=== PATIENT | female | born 1985 | race Hispanic/Latino ===

== ENCOUNTER 2018-07-13 21:19 | Emergency (ER) | payer OTHER, SELFPAY ==
[2018-07-13] MEDS ORDERED: ONDANSETRON 4 MG/2 ML VIAL ONE (22:04)
[2018-07-13] MEDS ORDERED: FAMOTIDINE 20 MG/2 ML VIAL IV ONE (22:04)
[2018-07-13] MEDS ORDERED: NA CHLORIDE 0.9% 1,000 ML ONE (22:04)
[2018-07-13] MEDS ORDERED: KETOROLAC 30 MG/ML INJ ONE (22:04)
[2018-07-13 22:19] LABS: Absolute Lymphocytes (CBC) 1.1 K/uL (0.7-4.9); Absolute Monocytes 0.6 K/uL (0.1-1.3); Absolute Neutrophil 13.1 K/uL (1.8-8.0); Basophils % 0.4 % (0-1.3); Eosinophils % 0.9 % (0-4.4); Hematocrit 35.7 % (36.0-45.0); Lymphocytes % 7.4 % (15.3-44.8); MPV 8.3 fL (7.6-11.3); Monocytes % 3.9 % (3.3-12.3); RBC Red Blood Cell Count 4.42 M/uL (3.86-4.86)
[2018-07-13 22:28] LABS: Protime INR 1.07
[2018-07-13 22:33] LABS: ALT/SGPT 126 U/L (12-78); AST/SGOT 230 U/L (15-37); Albumin 3.6 g/dL (3.4-5.0); Alkaline Phosphatase 113 U/L (45-117); BUN Blood Urea Nitrogen 9 mg/dL (7-18); Bicarbonate 25 mmol/L (21-32); Bilirubin Direct 0.4 mg/dL (0-0.2); Bilirubin Total 0.9 mg/dL (0.2-1.0); Glucose Level 102 mg/dL (74-106); Lipase 176 U/L (73-393); Magnesium 1.6 mg/dL (1.8-2.4); NT PRO-BNP 103 pg/mL (<125); Potassium 3.6 mmol/L (3.5-5.1); Protein, Total 7.6 g/dL (6.4-8.2); Sodium Level 134 mmol/L (136-145); Troponin (Emerg Dept Use Only) < 0.02 ng/mL (0.0-0.045)
[2018-07-14 00:12] LABS: Blood Morphology Comment NOT SEEN (NOT SEEN); Platelet Estimate ADEQ
--- NOTE | 2018-07-14 01:59 | EDPHYS ---
Physician Documentation [facility] Name: Giulia Tipton Age: 33 yrs Sex: Female : 1985 Arrival Date: 07/13/2018 Time: 21:20 Bed 24 Private MD: ED Physician Chele Thayer HPI: 07/13 21:40 This 33 yrs old Female presents to ER via Ambulatory with complaints of cp Breathing Difficulty, Chest Pain, Numbness Of Arm. 21:40 The patient has shortness of breath at rest. Onset: The symptoms/episode began/occurred cp yesterday, and improved returned today after taking prescribed erythromycin for bronchitis. 21:40 Duration: The symptoms are continuous. Associated signs and symptoms: Pertinent cp positives: chest pain, nausea, epigastric abdominal pain, right arm pain/numbness, Pertinent negatives: fever, hemoptysis, vomiting. Severity of symptoms: in the emergency department the symptoms are unchanged despite home interventions. The patient has experienced a previous episode, yesterday, but today's symptoms are worse, after taking prescribed erythromycin. 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 - Social history:: Smoking status: Patient/guardian denies using tobacco, Patient/guardian denies using alcohol, street drugs. - Ebola Screening: : No symptoms or risks identified at this time. ROS: 21:45 Eyes: Negative for injury, pain, redness, and discharge. cp 21:45 Constitutional: Negative for body aches, chills, fever, poor PO intake. 21:45 Cardiovascular: Positive for chest pain, Negative for edema, palpitations. cp 21:45 Respiratory: Negative for cough, shortness of breath, wheezing. 21:45 ENT: Negative for drainage from ear(s), ear pain, sore throat, difficulty swallowing, cp difficulty handling secretions. 21:45 Abdomen/GI: Positive for abdominal pain, nausea, of the epigastric area, Negative for vomiting, diarrhea, constipation, anorexia, hematemesis, black/tarry stool, rectal bleeding. 21:45 Back: Positive for radiated pain, Negative for injury or acute deformity, decreased range of motion. 21:45 : Negative for urinary symptoms. 21:45 Skin: Negative for cellulitis, rash. 21:45 Neuro: Negative for altered mental status, headache, syncope, weakness. 21:45 All other systems are negative. Exam: 21:40 ECG was reviewed by the Attending Physician. cp 21:50 Constitutional: The patient appears in no acute distress, alert, awake, cp non-diaphoretic, non-toxic, well developed, well nourished, uncomfortable. 21:50 Head/Face: Normocephalic, atraumatic. Eyes: Pupils equal round and reactive to light, cp extra-ocular motions intact. Lids and lashes normal. Conjunctiva and sclera are non-icteric and not injected. Cornea within normal limits. Periorbital areas with no swelling, redness, or edema. ENT: Nares patent. No nasal discharge, no septal abnormalities noted. Tympanic membranes are normal and external auditory canals are clear. Oropharynx with no redness, swelling, or masses, exudates, or evidence of obstruction, uvula midline. Mucous membranes moist. 21:50 Neck: ROM/movement: is normal, is supple, without pain, no range of motions limitations, no meningismus, no nuchal rigidity, Lymph nodes: no appreciated lymphadenopathy. 21:50 Chest/axilla: Inspection: normal, Palpation: crepitus, is not appreciated, tenderness, that is mild, of the anterior aspect of left upper chest, xyphoid area and mid-sternal area, that partially reproduces the patient's complaints. 21:50 Cardiovascular: Rate: normal, Rhythm: regular, Heart sounds: murmur, not appreciated, rub, not appreciated, Edema: is not appreciated, JVD: is not appreciated. 21:50 Respiratory: the patient does not display signs of respiratory distress, Respirations: normal, no use of accessory muscles, no retractions, no splinting, no tachypnea, labored breathing, is not present, Breath sounds: are clear throughout, no decreased breath sounds, no stridor, no wheezing. 21:50 Abdomen/GI: Inspection: abdomen appears normal, Bowel sounds: active, all quadrants, Palpation: soft, in all quadrants, moderate abdominal tenderness, in the epigastric area, rebound tenderness, is not appreciated, involuntary guarding, is elicited in the epigastric area. 21:50 Back: pain, that is moderate, of the mid back area, ROM is normal. 21:50 Skin: cellulitis, is not appreciated, no rash present. 21:50 Neuro: Orientation: to person, place \T\ time. Mentation: is normal, Cerebellar function: is grossly normal, Motor: moves all fours, strength is normal, Sensation: light touch is decreased in the right arm. Vital Signs: 21:35 Temp 97.7(O); lt1 22:27 BP 124 / 49; Pulse 79; Resp 17; Pulse Ox 100% ; rv 23:00 BP 108 / 59; Pulse 70; Resp 15; Pulse Ox 100% ; rv 23:30 BP 119 / 62; Pulse 82; Resp 16; Pulse Ox 100% ; rv 07/14 00:00 BP 111 / 56; Pulse 74; Resp 16; Pulse Ox 100% ; rv 01:00 BP 110 / 61; Pulse 101; Resp 18; Pulse Ox 100% ; rv 01:30 BP 115 / 89; Pulse 105; Resp 17; Pulse Ox 100% ; rv MDM: 07/13 21:36 Patient medically screened. cp 22:00 Differential diagnosis: Bronchitis pneumonia, Pneumothorax pulmonary edema, Pulmonary cp Embolism Unstable Angina gastritis, pancreatitis, cholecystitis. 07/14 01:57 Data reviewed: vital signs, nurses notes, lab test result(s), EKG, radiologic studies, cp CT scan, plain films. 01:57 Test interpretation: by ED physician or midlevel provider: ECG, plain radiologic cp studies, chest xray negative for infiltrates. 01:57 Counseling: I had a detailed discussion with the patient and/or guardian regarding: the cp historical points, exam findings, and any diagnostic results supporting the discharge/admit diagnosis, lab results, radiology results, the need for outpatient follow up, a family practitioner, to return to the emergency department if symptoms worsen or persist or if there are any questions or concerns that arise at home. 01:57 Antibiotic administration: Not indicated, the patient does not have an appreciated cp infiltrate. Response to treatment: the patient's symptoms have markedly improved after treatment, and as a result, I will discharge patient. 01:57 Special discussion: Based on the patient's history, exam, and Dx evaluation, there is cp no indication for emergent intervention or inpatient Tx. It is understood by the patient/guardian that if the Sx's persist or worsen they need to return immediately for re-evaluation. Based on the patient's Hx, exam, and Dx evaluation, there is no indication for emergent surgery or inpatient Tx. It is understood by the patient/guardian that if the Sx's persist or worsen they need to return immediately for re-evaluation. 01:57 Special discussion: I discussed with the patient the need to follow-up with the cp PCP/specialist for the noted incidental finding on X-ray/CT scanning. pulmonary nodules. 07/13 21:45 Order name: Basic Metabolic Panel; Complete Time: 22:48 cp 07/14 01:39 Interpretation: Normal except: NA 134. cp 07/13 21:45 Order name: CBC with Diff; Complete Time: 01:38 cp 07/14 01:38 Interpretation: Normal except: WBC 15.0; HGB 11.8; HCT 35.7; MCH 26.8; HUMBERTO% 87.4; LYM% cp 7.4; NEUT A 13.1. 07/13 21:45 Order name: LFT's; Complete Time: 22:48 cp 07/14 01:39 Interpretation: Normal except: AST 230; ALT 126; BILID 0.4; GLOB 4.0; A/G 0.9. cp 07/13 21:45 Order name: Magnesium; Complete Time: 22:48 cp 07/13 21:45 Order name: NT PRO-BNP; Complete Time: 22:48 cp 07/13 21:45 Order name: PT-INR; Complete Time: 22:48 cp 07/13 21:45 Order name: Troponin (emerg Dept Use Only); Complete Time: 22:48 cp 07/13 21:45 Order name: XRAY Chest (1 view) cp 07/13 21:45 Order name: Lipase; Complete Time: 22:48 cp 07/13 21:45 Order name: D-Dimer; Complete Time: 22:48 cp 07/13 21:45 Order name: US Abdomen Limited: RUQ/epigastric area cp 07/13 22:50 Order name: CT Chest For PE Angio 07/14 00:05 Order name: Manual Differential; Complete Time: 01:38 EDMS 07/13 21:36 Order name: EKG; Complete Time: 21:36 cp 07/13 21:36 Order name: EKG - Nurse/Tech; Complete Time: 21:42 cp 07/13 21:45 Order name: Cardiac monitoring; Complete Time: 21:59 cp 07/13 21:45 Order name: IV Saline Lock; Complete Time: 21:59 cp 07/13 21:45 Order name: Labs collected and sent; Complete Time: 21:59 cp 07/13 21:45 Order name: O2 Per Protocol; Complete Time: 21:59 cp 07/13 21:45 Order name: O2 Sat Monitoring; Complete Time: 21:59 cp 07/13 21:45 Order name: Urine Test (obtain specimen); Complete Time: 00:01 cp 07/13 21:45 Order name: Urine Dipstick-Ancillary (obtain specimen); Complete Time: 00:01 cp 07/13 22:50 Order name: CT Abd/Pelvis - W/Contrast cp EC/13 21:40 Rate is 77 beats/min. Rhythm is regular. AR interval is normal. QRS interval is normal. cp QT interval is normal. Interpreted by me. Reviewed by me. Administered Medications: 22:10 Drug: Pepcid 20 mg Route: IVP; Site: right antecubital; rv 07/14 00:00 Follow up: Response: No adverse reaction rv 07/13 22:12 Drug: Zofran 4 mg Route: IVP; Site: right antecubital; rv 07/14 00:00 Follow up: Response: No adverse reaction rv 07/13 22:15 Drug: TORadol - Ketorolac 15 mg Route: IVP; Site: right antecubital; rv 07/14 00:00 Follow up: Response: Pain is decreased rv 07/13 22:26 Drug: NS 0.9% 1000 ml Route: IV; Rate: 1 bolus; Site: right antecubital; rv 07/14 00:00 Follow up: IV Status: Completed infusion; IV Intake: 1000ml rv 01:56 Drug: Magnesium Sulfate 1 grams Route: IVPB; Infused Over: 15 mins; Site: right rv antecubital; 02:15 Follow up: IV Status: Completed infusion; IV Intake: 100ml rv Disposition: 07/14/18 01:58 Discharged to Home. Impression: Adverse effect of other systemic antibiotics, Other chest pain, Epigastric pain, Paresthesia of skin - right arm. - Condition is Stable. - Discharge Instructions: Nonspecific Chest Pain, Hiatal Hernia, Paresthesia. - Prescriptions for Protonix 40 mg Oral Tablet, Delayed Release (E.C.) - take 1 tablet by ORAL route once daily As needed; 20 tablet. Zofran 4 mg Oral Tablet - take 1 tablet by ORAL route every 12 hours As needed; 20 tablet. - Medication Reconciliation Form, Thank You Letter, Antibiotic Education, Prescription Opioid Use, Work release form form. - Follow up: Private Physician; When: 2 - 3 days; Reason: Recheck today's complaints. - Problem is new. - Symptoms are resolved. - Notes: stop erythromycin and follow up with primary physician Signatures: Dispatcher [employer] EDCA Amanda Nix RN RN Jaziel Acevedo PA PA cp Vicente, Ronaldo RN RN rv Corrections: (The following items were deleted from the chart) 00:05 05 22:22 CBC Smear Scan ordered. [facility] 07/14 02:01 01:58 07/14/2018 01:58 Discharged to Home. Impression: Adverse effect of other systemic cp antibiotics; Other chest pain; Epigastric pain. Condition is Stable. Forms are Work release form, Medication Reconciliation Form, Thank You Letter, Antibiotic Education, Prescription Opioid Use. Follow up: Private Physician; When: 2 - 3 days; Reason: Recheck today's complaints. Problem is new. Symptoms are resolved. cp 02:15 02:01 07/14/2018 01:58 Discharged to Home. Impression: Adverse effect of other systemic rv antibiotics; Other chest pain; Epigastric pain; Paresthesia of skin - right arm. Condition is Stable. Discharge Instructions: Nonspecific Chest Pain, Hiatal Hernia. Prescriptions for Protonix 40 mg Oral Tablet, Delayed Release (E.C.) - take 1 tablet by ORAL route once daily As needed; 20 tablet, Zofran 4 mg Oral Tablet - take 1 tablet by ORAL route every 12 hours As needed; 20 tablet. and Forms are Work release form, Medication Reconciliation Form, Thank You Letter, Antibiotic Education, Prescription Opioid Use. Follow up: Private Physician; When: 2 - 3 days; Reason: Recheck today's complaints. Problem is new. Symptoms are resolved. cp
--- NOTE | 2018-07-14 01:59 | ER ---
Nurse's Notes [facility] Name: Giulia Tipton Age: 33 yrs Sex: Female : 1985 Arrival Date: 07/13/2018 Time: 21:20 Bed 24 Private MD: Diagnosis: Adverse effect of other systemic antibiotics;Other chest pain;Epigastric pain;Paresthesia of skin-right arm Presentation: 07/13 21:32 Presenting complaint: Patient states: she took some erythromycin for bronchitis bb yesterday then started feeling weird with chest pain difficulty breathing numbness to her right arm she took second dose of erythromycin and symptoms worsened. Transition of care: patient was not received from another setting of care. Onset of symptoms was July 12, 2018. Risk Assessment: Do you want to hurt yourself or someone else? Patient reports no desire to harm self or others. Initial Sepsis Screen: Does the patient meet any 2 criteria? No. Patient's initial sepsis screen is negative. Does the patient have a suspected source of infection? No. Patient's initial sepsis screen is negative. Care prior to arrival: None. 21:32 Method Of Arrival: Ambulatory bb 21:32 Acuity: GENEVA 3 bb Triage Assessment: 22:29 General: Appears in no apparent distress. comfortable. Respiratory: Reports shortness rv of breath at rest Onset: The symptoms/episode began/occurred gradually, the patient has mild shortness of breath. 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 - Social history:: Smoking status: Patient/guardian denies using tobacco, Patient/guardian denies using alcohol, street drugs. - Ebola Screening: : No symptoms or risks identified at this time. Screenin:28 Abuse screen: Denies threats or abuse. Denies injuries from another. Nutritional rv screening: No deficits noted. Tuberculosis screening: No symptoms or risk factors identified. Fall Risk None identified. Assessment: 21:43 Reassessment: pt told her sister that she took an adipex at 0700 this morning. bb 22:27 General: Appears in no apparent distress. comfortable, Behavior is calm, cooperative. rv Pain: Complains of pain in chest. Neuro: Level of Consciousness is awake, alert, obeys commands, Oriented to person, place, time, situation. Cardiovascular: Capillary refill < 3 seconds Rhythm is regular. Respiratory: Airway is patent Respiratory effort is even, unlabored, Breath sounds are clear bilaterally. GI: No signs and/or symptoms were reported involving the gastrointestinal system. : No signs and/or symptoms were reported regarding the genitourinary system. EENT: No signs and/or symptoms were reported regarding the EENT system. Derm: Skin is intact. Musculoskeletal: No signs and/or symptoms reported regarding the musculoskeletal system. 07/14 00:57 Reassessment: Patient appears in no apparent distress at this time. Patient and/or rv family updated on plan of care and expected duration. Pain level reassessed. Patient is alert, oriented x 3, equal unlabored respirations, skin warm/dry/pink. AWAITING CT SCAN RESULT. Patient states feeling better. Vital Signs: 07/13 21:35 Temp 97.7(O); lt1 22:27 BP 124 / 49; Pulse 79; Resp 17; Pulse Ox 100% ; rv 23:00 BP 108 / 59; Pulse 70; Resp 15; Pulse Ox 100% ; rv 23:30 BP 119 / 62; Pulse 82; Resp 16; Pulse Ox 100% ; rv 07/14 00:00 BP 111 / 56; Pulse 74; Resp 16; Pulse Ox 100% ; rv 01:00 BP 110 / 61; Pulse 101; Resp 18; Pulse Ox 100% ; rv 01:30 BP 115 / 89; Pulse 105; Resp 17; Pulse Ox 100% ; rv ED Course: 07/13 21:20 Patient arrived in ED. es 21:24 Gee Rodriguez, RN is Primary Nurse. rv 21:30 EKG completed in triage. Results shown to MD. bb 21:35 Triage completed. bb 21:35 Jaziel Stockton PA is PHCP. cp 21:36 Chele Thayer MD is Attending Physician. cp 21:37 Arm band placed on Patient placed in an exam room, on a stretcher, on pulse oximetry. bb 22:05 Inserted saline lock: 22 gauge in right antecubital area, using aseptic technique. rv Blood collected. 22:07 XRAY Chest (1 view) In Process Unspecified. EDMS 22:18 US Abdomen Limited: RUQ/epigastric area In Process Unspecified. EDMS 22:29 Patient has correct armband on for positive identification. Bed in low position. Call rv light in reach. Side rails up X 1. Adult w/ patient. Pulse ox on. NIBP on. 23:24 Radiology exam delayed due to test not completed at this time. kw1 23:49 Radiology exam delayed due to test not completed at this time. kw1 07/14 00:26 Radiology exam delayed due to test not completed at this time. kw1 01:07 CT Chest For PE Angio In Process Unspecified. EDMS 01:09 CT Abd/Pelvis - W/Contrast In Process Unspecified. EDMS 01:59 No provider procedures requiring assistance completed. IV discontinued, intact, rv bleeding controlled, No redness/swelling at site. Pressure dressing applied. Administered Medications: 07/13 22:10 Drug: Pepcid 20 mg Route: IVP; Site: right antecubital; rv 07/14 00:00 Follow up: Response: No adverse reaction rv 07/13 22:12 Drug: Zofran 4 mg Route: IVP; Site: right antecubital; rv 07/14 00:00 Follow up: Response: No adverse reaction rv 07/13 22:15 Drug: TORadol - Ketorolac 15 mg Route: IVP; Site: right antecubital; rv 07/14 00:00 Follow up: Response: Pain is decreased rv 07/13 22:26 Drug: NS 0.9% 1000 ml Route: IV; Rate: 1 bolus; Site: right antecubital; rv 07/14 00:00 Follow up: IV Status: Completed infusion; IV Intake: 1000ml rv 01:56 Drug: Magnesium Sulfate 1 grams Route: IVPB; Infused Over: 15 mins; Site: right rv antecubital; 02:15 Follow up: IV Status: Completed infusion; IV Intake: 100ml rv Intake: 00:00 IV: 1000ml; Total: 1000ml. rv 02:15 IV: 100ml; Total: 1100ml. rv Outcome: 01:58 Discharge ordered by . cp 01:59 Discharged to home ambulatory. rv 01:59 Condition: good 01:59 Discharge instructions given to patient, family, Instructed on discharge instructions, follow up and referral plans. medication usage, Demonstrated understanding of instructions, follow-up care, medications. 02:15 Patient left the ED. rv Signatures: Dispatcher [employer] Adriane Thomas Brenda RN RN bb Jaziel Stockton PA PA cp Wilhelm, Kimberly kw1 Gee Rodriguez RN RN rv Sherry, Kristen 1
[2018-07-14] MEDS ORDERED: MAGNESIUM SULFATE 1 gm IVPB 1 GM/100 ML BAG IV ONE (02:03)
--- NOTE | 2018-07-14 07:31 | RAD REPORT ---
EXAM DESCRIPTION: US - Abdomen Exam Limited - 07/13/2018 10:19 pm CLINICAL HISTORY: Abdominal pain. COMPARISON: None. FINDINGS: The gallbladder wall is not thickened. A gallstone is not seen. The biliary tree is normal caliber. IMPRESSION: Unremarkable gallbladder ultrasound.
--- NOTE | 2018-07-14 07:37 | RAD REPORT ---
EXAM DESCRIPTION: Tatianna Single View07/13/2018 10:07 pm CLINICAL HISTORY: Chest pain COMPARISON: none FINDINGS: The lungs appear clear of acute infiltrate. The heart is normal size IMPRESSION: No acute abnormalities displayed
--- NOTE | 2018-07-14 07:55 | EKG ---
Test Date: 2018-07-13 Test Time: 21:30:42 Statistician Theoretical: SHYT MEASUREMENT RESULTS: Intervals: Rate: 77 [place]: 120 QRSD: 84 QT: 382 QTc: 432 [place]: P: 47 [place]: 120 QRS: 64 T: 27 INTERPRETIVE STATEMENTS: Normal sinus rhythm Normal ECG No previous ECG available for comparison Electronically Signed On 07-14-18 07:54:56 CDT by Cali Briones
--- NOTE | 2018-07-14 10:22 | RAD REPORT ---
EXAM DESCRIPTION: CT - Chest For Pe Angio - 07/14/2018 1:26 am CLINICAL HISTORY: The patient is 33 years old and is Female; Chest pain;SOB TECHNIQUE: Axial computed tomography images of the chest with intravenous contrast during the arteri al phase of enhancement. Sagittal and coronal reformatted images were created and reviewed. This CT exam was performed using one or more of the following dose reduction techniques: automated expos ure control, adjustment of the mA and/or kV according to patient size, and/or use of iterative recons truction technique. Oblique reformatted images were created and reviewed. COMPARISON: None. FINDINGS: PULMONARY ARTERIES: Unremarkable. No pulmonary embolism. AORTA: No acute findings. No thoracic aortic aneurysm. LUNGS: 5 mm left lower lobe pulmonary nodule (series 501, image 49). Mild atelectasis in lung base s. No focal consolidation, pleural effusion or pneumothorax. PLEURAL SPACE: See above. HEART: Unremarkable. No cardiomegaly. No significant pericardial effusion. No evidence of RV dysfunction. MEDIASTINUM: Moderate-sized hiatal hernia. THYROID: The visualized thyroid is unremarkable. BONES/JOINTS: No acute fracture. No dislocation. SOFT TISSUES: Unremarkable. LYMPH NODES: Unremarkable. No enlarged lymph nodes. IMPRESSION: 1. No pulmonary embolism. 2. No focal consolidation, pleural effusion or pneumothorax. 3. 5 mm left lower lobe pulmonary nodule. No routine follow-up imaging is recommended. These guidelines do not apply to patients younger than 35 years, immunocompromised patients, and helen ents with cancer. Follow up in patients with significant comorbidities as clinically warranted. For l luna cancer screening, adhere to Lung-RADS guidelines. Reference: Radiology. 2017; 284(1):228-43. 4. Moderate-sized hiatal hernia. Electronically signed by: Jere Low DO 07/14/2018 1:13 AM CDT Due to temporary technical issues with the PACS/Fluency reporting system, reports are being signed by the in house radiologist as a courtesy to ensure prompt reporting. The interpreting radiologist is f ully responsible for the content of the report.
--- NOTE | 2018-07-14 10:23 | RAD REPORT ---
EXAM DESCRIPTION: CT - Abdomen Pelvis W Contrast - 07/14/2018 1:28 am CLINICAL HISTORY: The patient is 33 years old and is Female; ABD PAIN TECHNIQUE: Axial computed tomography images of the abdomen and pelvis with intravenous contrast. S agittal and coronal reformatted images were created and reviewed. This CT exam was performed using one or more of the following dose reduction techniques: automated exposure control, adjustment of t he mA and/or kV according to patient size, and/or use of iterative reconstruction technique. COMPARISON: None. FINDINGS: LUNG BASES: Partial visualization of 5 mm left lower lobe pulmonary nodule. No mass. No consolidation. MEDIASTINUM: Moderate-sized hiatal hernia. ABDOMEN: LIVER: Unremarkable. No mass. GALLBLADDER AND BILE DUCTS: Unremarkable. No calcified stones. No ductal dilation. PANCREAS: Unremarkable. No mass. No ductal dilation. SPLEEN: Unremarkable. No splenomegaly. ADRENALS: Unremarkable. No mass. KIDNEYS AND URETERS: Unremarkable. No solid mass. No hydronephrosis. STOMACH AND BOWEL: Unremarkable. No obstruction. No mucosal thickening. PELVIS: APPENDIX: The appendix is seen and is within normal limits. BLADDER: Unremarkable. No mass. REPRODUCTIVE: Septated right ovarian cyst measuring 3.9 x 2.5 cm. Simple appearing left ovarian cy st measuring 2.5 cm. Small amount of endometrial fluid. ABDOMEN and PELVIS: INTRAPERITONEAL SPACE: Unremarkable. No free air. No significant fluid collection. BONES/JOINTS: No acute fracture. No dislocation. SOFT TISSUES: Small fat-containing umbilical hernia. VASCULATURE: Unremarkable. No abdominal aortic aneurysm. LYMPH NODES: Unremarkable. No enlarged lymph nodes. IMPRESSION: 1. No acute abdominal abnormality. 2. Incompletely characterized pelvic changes with complex/septated 3.9 cm right ovarian cyst. Recom mend prompt follow-up with pelvic US. Reference: J Am Filomena Radiol 2013;10:675-681. 3. Moderate-sized hiatal hernia. 4. 5 mm left lower lobe pulmonary nodule. No routine follow-up imaging is recommended. These guidelines do not apply to patients younger than 35 years, immunocompromised patients, and helen ents with cancer. Follow up in patients with significant comorbidities as clinically warranted. For l luna cancer screening, adhere to Lung-RADS guidelines. Reference: Radiology. 2017; 284(1):228-43. Electronically signed by: Jere Low DO 07/14/2018 1:17 AM CDT Due to temporary technical issues with the PACS/Fluency reporting system, reports are being signed by the in house radiologist as a courtesy to ensure prompt reporting. The interpreting radiologist is f ully responsible for the content of the report.
[2018-07-14 10:52] VITALS: TEMP 97.7
[2018-07-14 10:53] VITALS: O2SAT 100
[2018-07-14 11:01] VITALS: BP 115/89
== END 2018-07-14 02:15 | disposition home or self-care (01) ==
LOC: ER 21:19
DX: R10.13 Epigastric pain (principal); T36.8X5A Adverse effect of other systemic antibiotics, initial encounter; R20.2 Paresthesia of skin; Z88.1 Allergy status to other antibiotic agents
CPT/HCPCS: 36415; 71045; 71275; 74177; 76705; 80048; 80076; 83690; 83735; 83880; 84484; 85025; 85379; 85610; 93005; 96361; 96365; 96375; 99284; J2405; J3475; J7030; Q9967